=== PATIENT | female | born 1935 | race Caucasian/White ===

== ENCOUNTER 2016-07-09 11:44 | Emergency (ER) | payer MEDICARE, OTHER ==
[2016-07-09] MEDS ORDERED: 0.9 % SODIUM CHLORIDE 1,000 ML BAG IV ONE ×2 (11:58→12:24)
--- NOTE | 2016-07-09 12:06 | Emergency Department Record ---
History of Present Illness - General Chief Complaint: Altered Mental Status Stated Complaint: DECREASE LOC Time Seen by Provider: 07/09/16 11:57 Source: Family, EMS Mode of Arrival: EMS Limitations: Altered mental status - History of Present Illness Initial Comments: 81 yo female presents with altered mental status that status that started last night. She has had decreased responsiveness, moaning and non verbal except a few words. PER EMS the accu check was HIGH. No prior visits to [facility] brought by JONNATHAN. The patient's PCP is Dr Urrutia. The patient has not felt well one week since she performed a colonoscopy prep for a follow up colonoscopy. She has had poor PO intake this week. MD Complaint: Altered mental status -: Days(s) (1) Severity: Severe Consistency: Constant - [place] Coma Scale Eye Response: (3) Open to voice Motor Response: (5) Localizes to pain Verbal Response: (3) Inappropriate words Ciatlin Total: 11 - Related Data Home Medications Medication Instructions Recorded Confirmed Last Taken Hydrocodone/Acetaminophen [[place] 1 tab PO Q6H PRN 07/09/16 07/09/16 Unknown 5mg/325mg] Insulin Glargine,Hum.rec.anlog unit SQ 07/09/16 Unknown [Lantus] Levothyroxine Sodium [Synthroid] 100 mcg PO DAILY 07/09/16 07/09/16 Unknown Metformin HCl 1,000 mg PO BID 07/09/16 07/09/16 Unknown Allergies Allergy/AdvReac Type Severity Reaction Status Date / Time No Known Drug Allergies Allergy Verified 07/09/16 12:06 Review of Systems ROS unobtainable: Due to mental status Constitutional: Denies: Chills, Fever Physical Exam - General General Appearance: Mild distress, Other (Moans, non verbal) Limitations: Altered mental status - Head Head exam: Normal inspection - Eye Eye exam: Normal appearance. negative: Conjunctival injection, Periorbital swelling - ENT ENT exam: Mucous membranes dry. negative: Mucous membranes moist Nasal Exam: Normal inspection. negative: Discharge, Sinus tenderness Mouth exam: Normal external inspection, Tongue normal Teeth exam: Normal inspection. negative: Dental caries - Neck Neck exam: Normal inspection, Full ROM. negative: Tenderness - Respiratory Respiratory exam: Decreased breath sounds - Cardiovascular Cardiovascular Exam: Normal rhythm, Normal heart sounds, Tachycardia - GI/Abdominal GI/Abdominal exam: Soft. negative: Distended, Guarding, Rebound, Rigid, Tenderness - Rectal Rectal exam: Deferred - exam: Deferred - Extremities Extremities exam: Normal inspection, Full ROM, Normal capillary refill. negative: Tenderness - Back Back exam: Reports: Normal inspection, Full ROM. Denies: Muscle spasm, Rash noted, Tenderness - Neurological Neurological exam: Altered. negative: Alert, Oriented X3 - Psychiatric Psychiatric exam: Agitated, Depressed. negative: Normal affect, Normal mood - Skin Skin exam: Dry, Intact, Normal color, Warm Course - Reevaluation(s) Reevaluation #1: Accucheck HIGH per EMS EKG sinus tach at 90, intervals normal, axis lormal, artifact due to movement 07/09/16 12:04 Reevaluation #2: Labs reviewed CBC WBC 13.7 HGB 9.9 ABG PCO2 11, PO2 156 HCO3 1.8 pH 6.85 07/09/16 12:25 Reevaluation #3: Labs reviewed WBC 13.7 ABG 6.85/ PCO2 11 PO2 156 HCO3 1.8 Glucose 1238 AG 29 CO3 ,5 Troponin 0.032 Mg 3.2 HCT No acute changes, old lacunar infarct I discussed the results with the family and the need for ICU The request [facility] [place] for transfer. 07/09/16 12:55 Reevaluation #4: I SW Dr Clifton of We discussed the labs and results I requested ICU admission He agrees with accepting for transfer for additional care. 07/09/16 13:12 Reevaluation #5: The family was updated on the results and transfer I informed them the critical nature of the illness Per the the patient is FULL CODE. 07/09/16 13:15 Medical Decision Making - Lab Data Result diagrams: 07/09/16 11:45 07/09/16 11:45 Critical Care Time Critical Care Time: Yes Total Critical Care Time: 65 Disposition Disposition: Transfer Clinical Impression: Encephalopathy DKA (diabetic ketoacidoses) Qualifiers: Diabetes mellitus type: other specified (including JYOTI) Diabetes mellitus complication detail: without coma Qualified Code(s): E13.10 - Other specified diabetes mellitus with ketoacidosis without coma Disposition: Acute Care Hospital Transfer Transfer To: [facility] [place] Reason For Transfer: DKA, ICU care Accepting Physician: Etienne Time Discussed w/Accepting Physician: 13:14 Condition: (5) Critical Forms: Patient Portal Access Time of Disposition: 13:14
[2016-07-09 12:12] LABS: HEMATOCRIT 34.5 % (35.0-47.0); HEMOGLOBIN 9.9 gm/dl (11.6-16.0); MEAN CELL VOLUME 88.2 fl (81-97); MEAN CORPUSCULAR HEMOGLOBIN 25.3 pg (27-33); MEAN CORPUSCULAR HGB CONC 28.7 g/dl (32-36); MEAN PLATELET VOLUME 10.7 fl (7.4-10.4); PLATELET COUNT 561 K/uL (130-400); RED BLOOD COUNT 3.91 M/uL (3.80-5.40); RED CELL DISTRIBUTION WIDTH 17.8 % (11.5-14.5); WHITE BLOOD COUNT W/O DIFF 13.7 K/uL (4.2-12.2)
[2016-07-09 12:16] LABS: ARTERIAL BLOOD GAS BASE EXCESS -30.4 mmol/L (-2 - 3); ARTERIAL BLOOD GAS HCO3 1.8 mmol/L (18-23); CARBOXYHEMOGLOBIN 0.4 % (0-1.5); METHEMOGLOBIN 1.5 % (0.0-1.5); O2 HEMOGLOBIN 96.2 % vol (94-99); TOTAL HEMOGLOBIN 9.2 g/dl (11.6-16)
[2016-07-09 12:21] LABS: ALLEN TEST FAIL
[2016-07-09 12:22] LABS: ARTERIAL BLOOD GAS PCO2 11.2 mmHg (35-48); ARTERIAL BLOOD GAS pH 6.85 (7.35-7.45)
[2016-07-09] MEDS ORDERED: SODIUM BICARBONATE 50MEQ SYRINGE IVP ONE (12:24)
[2016-07-09 12:25] LABS: ALB/GLOB RATIO 1.8 (1.1-1.8); ALBUMIN 4.4 gm/dL (3.5-5.0); ALKALINE PHOSPHATASE 169 U/L (38-126); ALT/SGPT 18 U/L (9-52); AST/SGOT 14 U/L (14-36); BILIRUBIN,TOTAL 0.27 mg/dL (0.2-1.3); BLOOD UREA NITROGEN 29 mg/dL (7-17); CREATININE 1.6 mg/dL (0.52-1.04); EST GLOMERULAR FILTRATION RATE 33 ml/min; TOTAL PROTEIN 6.9 gm/dL (6.3-8.2)
[2016-07-09 12:26] LABS: URINE APPEARANCE CLEAR; URINE BILIRUBIN NEGATIVE (NEGATIVE); URINE BLOOD MODERATE (NEGATIVE); URINE COLOR YELLOW; URINE KETONE 40 mg/dL (NEGATIVE); URINE LEUKOCYTE ESTERASE NEGATIVE (NEGATIVE); URINE NITRITE NEGATIVE (NEGATIVE); URINE PROTEIN TRACE (NEGATIVE); URINE UROBILINOGEN 0.2 E.U./dL (0.20 - 1.00)
[2016-07-09 12:30] LABS: URINE GLUCOSE (UA) >=1000 mg/dL (NEGATIVE)
[2016-07-09 12:33] LABS: CARBON DIOXIDE < 5.0 mmol/L (22-30)
[2016-07-09 12:34] LABS: GLUCOSE,RANDOM 1238 mg/dL (70-110)
[2016-07-09 12:36] LABS: TROPONIN I 0.032 ng/mL (0.00-0.034)
[2016-07-09 12:39] LABS: URINE WBC 0 - 2 (0-2/hpf)
[2016-07-09 12:40] LABS: URINE AMORPHOUS SEDIMENT 1+; URINE BACTERIA NONE SEEN; URINE EPITHELIAL CELLS 0 - 2 (FEW)
[2016-07-09] MEDS ORDERED: INSULIN REGULAR, HUMAN 100 UNIT in 0.9 % SODIUM CHLORIDE 100ML 100 ML IV SCH ×2 (13:00)
[2016-07-09] MEDS ORDERED: 0.9 % SODIUM CHLORIDE 1000ML 1,000 ML IV ONE (13:28)
[2016-07-09 14:07] LABS: ACETONE,SERUM POSITIVE (NEGATIVE)
--- NOTE | 2016-07-13 10:38 | CT SCAN REPORT ---
EXAM: CT OF THE HEAD WITHOUT CONTRAST HISTORY: UNRESPONSIVE. ALTERED LEVEL OF CONSCIOUSNESS. TECHNIQUE: Routine noncontrast CT examination of the head was obtained. Comparison: None. FINDINGS: There is moderate dilatation of the subarachnoid spaces associated with borderline ventriculomegaly consistent with generalized atrophy. Minor periventricular white matter lucencies are scattered in each cerebral hemisphere primarily in the frontal lobes. These are nonspecific, but likely areas of chronic small vessel ischemia. There is a small focus of hypodensity in the posterior limb of the right internal capsule measuring 4 mm consistent with prominent perivascular space for age indeterminate lacunar infarct. No other area of abnormally increased or decreased attenuation is noted throughout the brain substance. No abnormal extraaxial fluid collection is seen. No acute skull fracture. The visualized paranasal sinuses and mastoid air cells are clear. IMPRESSION: 1. NO CT EVIDENCE OF ACUTE MAJOR VESSEL INFARCT, INTRACRANIAL HEMORRHAGE, NOR MASS. 2. GENERALIZED ATROPHY. 3. MILD WHITE MATTER LUCENCY SCATTERED IN EACH CEREBRAL HEMISPHERE. THESE ARE NONSPECIFIC THOUGH LIKELY AREAS OF CHRONIC SMALL VESSEL ISCHEMIA. 4. 4 MM FOCUS OF HYPODENSITY IN THE POSTERIOR LIMB OF THE RIGHT INTERNAL CAPSULE CONSISTENT WITH PROMINENT PERIVASCULAR SPACE OR AGE INDETERMINATE LACUNAR INFARCT. JOB NUMBER: [id number] MTDD
== END 2016-07-09 13:50 | disposition short-term general hospital (02) ==
LOC: ER 11:44
DX: G93.40 Encephalopathy, unspecified (principal); E13.10 Other specified diabetes mellitus with ketoacidosis without coma; R41.82 Altered mental status, unspecified; E03.9 Hypothyroidism, unspecified; Z79.4 Long term (current) use of insulin
CPT/HCPCS: 99291 ×2; 96374; 96375; 96361; 83735; 82800; 82375; 84484; 80053; 81001; 82009; 82803; 85027; 70450; 36600; 93005; 93010; J1815; J7030